=== PATIENT | female | born 1955 | race Caucasian/White ===

== ENCOUNTER 2019-09-20 14:43 | Observation (INO) ==
[~2019-09-20 14:43] MED LIST: LIDOCAINE W/ SODIUM BICARB 0.5 ML SYR ONE; Lactated Ringers 1,000 ML PRIMARY IV ONE
[2019-09-20] MEDS ORDERED: MIDAZOLAM HCL 2 MG/2 ML VIAL ONE (14:49)
[2019-09-20] MEDS ORDERED: LIDOCAINE MPF 2% - 5 ML (20 MG/1 ML) ONE (14:49)
[2019-09-20] MEDS ORDERED: fentaNYL Inj 100 MCG/2 ML VIAL ONE (14:49)
[2019-09-20] MEDS ORDERED: PROPOFOL 10 MG/1 ML (200 MG/20 ML) VIAL IV ONE (14:50)
[2019-09-20] MEDS ORDERED: SUCCINYLCHOLINE CHLORIDE 20 MG/1 ML - 10 ML ONE (14:54)
[2019-09-20] MEDS ORDERED: GLYCOPYRROLATE 0.2 MG/1 ML VIAL ONE (14:58)
[2019-09-20] MEDS ORDERED: OXYMETAZOLINE 0.05% 15 ML NASAL SPRAY ONE ×3 (15:07→15:56)
[2019-09-20 15:21] LABS: Hematocrit [HCT] 36.2 % (37.0-47.0); Hemoglobin [HGB] 12.3 g/dL (12.0-16.0); MEAN CORPUSCULAR VOLUME 94.8 FL (81-99); MEAN PLATELET VOLUME 8.9 FL (7.4-12.2); RED BLOOD COUNT 3.82 10^6/uL (4.20-5.40)
[2019-09-20 15:31] LABS: BLOOD UREA NITROGEN 21 mg/dL (7-22); BUN/CREATININE RATIO 26.25 (6-20); SERUM ALBUMIN 4.2 g/dL (3.5-4.8)
[2019-09-20 15:38] LABS: BAND NEUTROPHILS % 0 % (0-10); NEUTROPHILS % (MANUAL) 37 % (50-80); PLATELET MORPHOLOGY COMMENT NORMAL MORPHOLOGY (NORM); RBC MORPHOLOGY COMMENT NORMAL MORPHOLOGY (NORM); WBC MORPHOLOGY COMMENT SEE COMMENTS (NORM)
[2019-09-20 15:39] LABS: BASOPHILS % (MANUAL) 0 % (0-1); EOSINOPHILS % (MANUAL) 2 % (0-8); METAMYELOCYTES % 0 %; MONOCYTES % (MANUAL) 5 % (0-12); MYELOCYTES % 0 %; PROMYELOCYTES % 0 %
[2019-09-20] MEDS ORDERED: PHENYLEPHRINE 10,000 MCG/1 ML VIAL ONE (15:42)
[2019-09-20] MEDS ORDERED: DEXAMETHASONE PF 10 MG/1 ML VIAL ONE (15:48)
[2019-09-20] MEDS ORDERED: ONDANSETRON 4 MG/2 ML VIAL ONE (15:49)
[2019-09-20] MEDS ORDERED: LIDOCAINE W/ SODIUM BICARB 0.5 ML SYR SUBD PRN (15:49)
[2019-09-20] MEDS ORDERED: Lactated Ringers 1,000 ML PRIMARY IV SCH (16:00)
[2019-09-20] MEDS ORDERED: Bacitracin Oint 14.2 gm tube 14 APPLIC/14.2 GM TUBE TOPICAL ONE (16:22)
[2019-09-20] MEDS: ceFAZolin Inj 1 GM in Sodium Chloride 0.9% 100 ML IV SCH (16:28)
[2019-09-20] MEDS ORDERED: ceFAZolin 1 GM VIAL ONE (16:29)
[2019-09-20] MEDS ORDERED: ONDANSETRON 4 MG/2 ML VIAL IVP PRN (16:35)
[2019-09-20] MEDS ORDERED: D5-1/2NS 1,000 ML PRIMARY IV SCH (16:45)
[2019-09-20] MEDS: HYDROcodone-APAP 7.5 MG-325 MG TABLET PO PRN ×2 (17:08→21:30)
[2019-09-21] MEDS: ceFAZolin Inj 1 GM in Sodium Chloride 0.9% 100 ML IV SCH ×2 (01:17→08:42)
[2019-09-21] MEDS: HYDROcodone-APAP 7.5 MG-325 MG TABLET PO PRN ×2 (01:19→07:40)
[2019-09-21 08:01] VITALS: BP 103/46; RESP 17; TEMP 97.6; O2SAT 95
== END 2019-09-21 10:18 | disposition home or self-care (01) ==
LOC: OR 14:43 → MED/SURG 14:43 → OPS 14:44
PROVIDERS: ADMIT Otolaryngology; ATTEND Otolaryngology